=== PATIENT | male | born 1940 | race Caucasian/White ===

== ENCOUNTER 2016-09-07 12:21 | Day surgery (SDC) | payer MEDICARE, BC ==
--- NOTE | ~2016-09-07 | OP ---
Record Of Operation [facility] [address] [place]. [address] NAME: VINCENT GUAJARDO III : 36 [place]US [place] [facility] [place] [id number] AGE: 75 ADM/REG DATE : 09/07/16 MR#: [id number] REPORT SERV DATE: 09/07/16 DICTATED BY: JOE DE LUNA DATE: 09/07/16 REPORT STATUS : Draft TRANSCRIBED BY: MODL DATE: 09/07/16 DATE OF PROCEDURE: 09/07/2016 PROCEDURE: Ultrasound-guided left-sided thoracentesis. INDICATION: Moderate left-sided pleural effusion. PROCEDURE FRONT DESK SUPERVISOR: Mayo De Luna PA-C. CONSENT: Consent was obtained from the patient prior to the procedure. Diagnostic and therapeutic indications for thoracentesis were discussed as well as risks including life- threatening bleeding, pneumothorax, and even the possible necessity of chest tube placement. Benefits and alternatives were explained at length. Prior to the procedure, imaging studies were reviewed with Dr. Arias who agreed with the indication to proceed with thoracentesis. PROCEDURE SUMMARY: A time out was performed verifying correct patient, procedure, site, and positioning. The patient's left side was prepped and draped in a sterile manner using chlorhexidine scrub after the appropriate level was percussed and confirmed by ultrasound. U/S images were obtained and placed within the chart. 2% lidocaine with epinephrine was then used to anesthetize the region. A finder needle was then used to aspirate straw-colored fluid. A 10-blade scalpel was then used to make a small incision. The thoracentesis catheter was then threaded into the pleural space without difficulty. The patient had 1200 mL of straw-colored fluid removed. No immediate complications were noted during the procedure. A post-procedure chest x-ray is pending at the time of this dictation. The fluid will be sent for several studies. ESTIMATED BLOOD LOSS: Minimal. GBS/MODL Joe De Luna PA-C / [id number] CC: AMERICA Pacheco M.D.
[~2016-09-07 12:21] MED LIST: ASAB PO; ASCRIPTIN PO; CALGLUCTAB PO; CETIRIZINE5 MG PO; CLARIT10 PO; COREG3 PO; COSAMIN DS1 TAB PO; COZ50 PO; FLOMAX4 PO; GLEEVEC400 MG PO; IRON325 MG PO; K-TABS10 MEQ PO; L20 PO; L40 PO; MAG OXIDE250 MG PO; MAG-SR535 MG PO; MULTIPLE VIT PO; NORV5 PO; OSTEO BI-FLEX PO; OSTEO BI-FLX PO; PRILO PO; SPRYCEL100 MG PO; SPRYCEL50 MG PO; SUPER B-100 OR; TASIGNA200 MG PO; VITA10 PO; VITAMIN B PO; VITAMIN C100 MG PO; VITAMIN C250 MG PO; VITAMIN D1000 UNI1 PO; VITAMIN E PO; ZYRTEC ALLGY10 MG PO
[2016-09-07 12:51] LABS: BASOPHILS 0.3 %; BASOPHILS ABSOLUTE 0.01 10/3/uL (0.0-0.16); EOSINOPHILS 0.5 %; EOSINOPHILS ABSOLUTE 0.02 10/3/uL (0.0-0.53); LYMPHOCYTES 22.9 %; LYMPHOCYTES ABSOLUTE 0.91 10/3/uL (0.67-4.30); MEAN PLATELET VOLUME 9.6 fL (9.2-13.0); MONOCYTES ABSOLUTE 0.28 10/3/uL (0.21-1.20); NEUTROPHILS 69.3 %; NEUTROPHILS ABSOLUTE 2.76 10/3/uL (2.02-8.40); RED CELL COUNT 3.96 10/6/uL (4.7-6.1)
[2016-09-07 12:55] LABS: HEMATOCRIT 40.4 % (40.0-51.0); HEMOGLOBIN 12.9 g/dL (13.6-17.8); MANUAL DIFF NO %; MEAN CORPUS HGB CONC 31.9 g/dL (32.0-36.0); MEAN CORPUSCULAR HEMOGLOB 32.6 pg (26.0-34.0); PLATELET COUNT 194 10/3/uL (150-400)
[2016-09-07 12:58] LABS: PARTIAL THROMBO TIME 25.7 SEC (22.5-37.2); PROTIME (NOT ORD) 13.3 SEC (12.0-14.5)
[2016-09-07 19:49] LABS: BD FL SOURCE (NOT ORD) LEFT PLEURAL FLUID
[2016-09-07 20:13] LABS: GLUCOSE BODY FL (NOT ORD) 99 MG/DL; LDH BODY FLUID (NOT ORD) 114 U/L
[2016-09-07 20:31] LABS: BD FL LYMPH (NOT ORD) 92 %; BF BASO (NOT OF) 0 %; BF LARGE MONONUCLEAR 5 %; BODY FLUID EOS (NOT ORD) 0 %; BODY FLUID SEG (NOT ORD) 3 %
[2016-09-07 21:10] LABS: BF TOTAL CELL CT (NOT ORD 2466 /MM3; BODY FLUID RBC (NOT ORD) 609 /MM3
[2016-09-08 08:23] LABS: BD FL SOURCE (NOT ORD) PLEURAL
== END 2016-09-07 23:59 | disposition home or self-care (01) ==
LOC: DMU 12:21
PROVIDERS: Physician Assistant Medical
PROC: BB4BZZZ Ultrasonography of Pleura (ICD-10-PCS; 2016-09-07)
PROC: 0W9B3ZZ Drainage of Left Pleural Cavity, Percutaneous Approach (ICD-10-PCS; principal; 2016-09-07 13:00)
DX: J90 Pleural effusion, not elsewhere classified (principal); I11.0 Hypertensive heart disease with heart failure; I50.9 Heart failure, unspecified; M19.90 Unspecified osteoarthritis, unspecified site; K44.9 Diaphragmatic hernia without obstruction or gangrene; N40.0 Benign prostatic hyperplasia without lower urinary tract symptoms; Z79.82 Long term (current) use of aspirin; Z79.899 Other long term (current) drug therapy; Z90.89 Acquired absence of other organs; Z86.010 Personal history of colon polyps; Z98.890 Other specified postprocedural states; Z96.641 Presence of right artificial hip joint
CPT/HCPCS: 71010; 82945; 83615; 83986; 84157; 85025; 85610; 85730; 87015; 87070; 87102; 87116; 87205; 88112; 88305; 89051

== ENCOUNTER 2016-11-09 10:23 | Day surgery (SDC) | payer MEDICARE, BC ==
--- NOTE | ~2016-11-09 | OP ---
Record Of Operation [facility] [address] [place]. [address] NAME: VINCENT GUAJARDO III : 36 [place] [facility] [place] [id number] AGE: 75 ADM/REG DATE : 11/09/16 MR#: [id number] REPORT SERV DATE: 11/09/16 DICTATED BY: HESHAM KHALIL DATE: 11/09/16 REPORT STATUS : Draft TRANSCRIBED BY: MODL DATE: 11/09/16 DATE OF PROCEDURE: 11/09/2016 PREPROCEDURE DIAGNOSIS: Bilateral pleural effusions. POSTPROCEDURE DIAGNOSIS: Bilateral pleural effusions. PROCEDURE: Left-sided thoracentesis. SPECIMENS: Left pleural fluid 1300 mL removed. DESCRIPTION OF PROCEDURE: Informed consent obtained from the patient both written and verbal. Risks and side effects were discussed and all questions answered. The patient was put in a seated position in the endoscopy suite. Ultrasound guidance was used to identify both left and right-sided at least moderate-sized pleural fluid. No evidence of loculations seen. We decided to go back to the left side for the thoracentesis procedure. Area of the skin was cleaned with chlorhexidine and was prepped and draped. I was gowned with sterile gown and gloves. 1% lidocaine was injected into the lower left back, where we were going to insert our thoracentesis needle. The thoracentesis needle was inserted and was able to obtain fluid draw back that was dark yellow in color. We proceeded to empty out the left pleural space and removed 1300 mL of fluid. There was no significant bleeding, significant pain, or complication from the procedure. No blood loss. This procedure was image guided with ultrasound identified with the pleural fluid and a picture was printed and placed in the chart. Fluid will be sent for routine culture, chemical analysis, flow cytometry, and cytology. The patient is an ADA level. The patient was instructed to follow up with his regular client onboarding analyst Dr. Arias for results. CEP/MODL Hesham Khalil DO / [id number] CC: DO Ann Marie Carrasco M.D.
[2016-11-09 10:55] LABS: BASOPHILS 0.3 %; BASOPHILS ABSOLUTE 0.01 10/3/uL (0.0-0.16); EOSINOPHILS ABSOLUTE 0.04 10/3/uL (0.0-0.53); HEMATOCRIT 40.1 % (40.0-51.0); HEMOGLOBIN 13.2 g/dL (13.6-17.8); IMMATURE GRANULOCYTES 0.3 %; IMMATURE GRANULOCYTES ABSOLUTE 0.01 10/3/uL (0.0-0.11); LYMPHOCYTES 13.5 %; LYMPHOCYTES ABSOLUTE 0.54 10/3/uL (0.67-4.30); MANUAL DIFF NO %; MEAN CORPUS HGB CONC 32.9 g/dL (32.0-36.0); MEAN CORPUSCULAR HEMOGLOB 33.8 pg (26.0-34.0); MEAN CORPUSCULAR VOLUME 102.8 fL (80-100); MEAN PLATELET VOLUME 9.7 fL (9.2-13.0); MONOCYTES ABSOLUTE 0.64 10/3/uL (0.21-1.20); NEUTROPHILS 68.9 %; NEUTROPHILS ABSOLUTE 2.75 10/3/uL (2.02-8.40); PLATELET COUNT 205 10/3/uL (150-400); RBC DISTRIBUTION WIDTH 14.9 % (12.0-16.0)
[2016-11-09 11:02] LABS: PROTIME (NOT ORD) 13.2 SEC (12.0-14.5)
[2016-11-09 13:10] LABS: GLUCOSE BODY FL (NOT ORD) 109 MG/DL; LDH BODY FLUID (NOT ORD) 95 U/L; PROTEIN BODY FLUID 4.2 G/DL
[2016-11-09 13:17] LABS: BD FL LYMPH (NOT ORD) 68 %; BF BASO (NOT OF) 0 %; BF LARGE MONONUCLEAR 20 %; BODY FLUID EOS (NOT ORD) 1 %; BODY FLUID SEG (NOT ORD) 11 %
[2016-11-09 14:50] LABS: BF TOTAL CELL CT (NOT ORD 1441 /MM3; BODY FLUID RBC (NOT ORD) 758 /MM3
== END 2016-11-09 23:59 | disposition home or self-care (01) ==
LOC: DMU 10:23
PROVIDERS: Internal Medicine Pulmonary Disease
PROC: BB4BZZZ Ultrasonography of Pleura (ICD-10-PCS; 2016-11-09)
PROC: 0W9B3ZZ Drainage of Left Pleural Cavity, Percutaneous Approach (ICD-10-PCS; principal; 2016-11-09 11:00)
DX: J90 Pleural effusion, not elsewhere classified (principal); I13.0 Hypertensive heart and chronic kidney disease with heart failure and stage 1 through stage 4 chronic kidney disease, or unspecified chronic kidney disease; N18.3 Chronic kidney disease, stage 3 (moderate); I50.9 Heart failure, unspecified; D64.9 Anemia, unspecified; M19.90 Unspecified osteoarthritis, unspecified site; J98.11 Atelectasis; C92.10 Chronic myeloid leukemia, BCR/ABL-positive, not having achieved remission; K21.9 Gastro-esophageal reflux disease without esophagitis; K44.9 Diaphragmatic hernia without obstruction or gangrene; Z79.82 Long term (current) use of aspirin; Z79.899 Other long term (current) drug therapy; Z71.89 Other specified counseling; Z90.89 Acquired absence of other organs; Z98.890 Other specified postprocedural states; Z82.61 Family history of arthritis; Z81.1 Family history of alcohol abuse and dependence; Z82.5 Family history of asthma and other chronic lower respiratory diseases; Z82.49 Family history of ischemic heart disease and other diseases of the circulatory system; Z87.891 Personal history of nicotine dependence; Z96.641 Presence of right artificial hip joint
CPT/HCPCS: 71010; 82945; 83615; 84157; 85025; 85610; 85730; 87015; 87102; 87116; 88112; 88184; 88185; 88305; 89051